=== PATIENT | female | born 1940 | race Caucasian/White ===

== ENCOUNTER 2017-07-12 13:54 | Emergency (ER) | payer OTHER ==
[~2017-07-12] VITALS: Ht 154.9 cm; Wt 62.0 kg
[~2017-07-12 13:54] MED LIST: ACET-1757 PO; ALLO300T PO; ATEN50TA41 PO; B12/1TAB PO; CHOL2000 PO; DIGO125T PO; DOCU100C33 PO; FENO43CA3 PO; GABA300C10 PO; LEVO500T8 PO; MAG355OR14 PO; MVI PO; POTA10PI PO; RIVA20TA PO; SIMV40TA3 PO; WARF2TAB7 PO; WARF4TAB PO; WARF4TAB7 PO; WARF6TAB7 PO; [UNRECOGNIZED DRUG - CODE] PO
[2017-07-12] MEDS ORDERED: SODIUM CHLORIDE 0.9% 1,000ML IVBOLUS ONE (14:30)
[2017-07-12] MEDS ORDERED: SODIUM CHLORIDE FLUSH 10ML SYR IVF ONE (14:30)
[2017-07-12 15:01] LABS: BASOPHILS # (AUTO) 0.03 x10^3/uL (0-0.1); BASOPHILS % (AUTO) 0 % (0-1); EOSINOPHILS # (AUTO) 0.14 x10^3/uL (0-0.4); EOSINOPHILS % (AUTO) 2 % (1-7); LYMPHOCYTES % (AUTO) 45 % (22-44); MD NO; MEAN CORPUSCULAR HEMOGLOBIN 32.2 pg (27.0-34.8); MEAN CORPUSCULAR HGB CONC 33.9 g/dL (32.4-35.8); MEAN CORPUSCULAR VOLUME 94.9 fL (80-100); MEAN PLATELET VOLUME 10.5 fL (7.4-10.4); MONOCYTES % (AUTO) 10 % (2-9); NEUTROPHILS # (AUTO) 2.73 x10^3/uL (1.8-6.8); NEUTROPHILS % (AUTO) 43 % (42-75); PLATELET COUNT 179 x10^3/uL (130-400); RED BLOOD COUNT 5.24 x10^6/uL (3.82-5.3); RED CELL DISTRIBUTION WIDTH 13.6 % (9.6-15.2)
[2017-07-12 15:11] LABS: ALBUMIN 3.5 g/dL (3.4-5.0); ANION GAP 5 mmol/L (5-15); CALCIUM 10.6 mg/dL (8.5-10.1); CHLORIDE 107 mmol/L (98-107); CREATININE 1.21 mg/dL (0.55-1.02)
[2017-07-12 15:15] LABS: TROPONIN I 0.018 ng/mL (0.000-0.045)
[2017-07-12 15:26] LABS: INTERNATIONAL NORMALIZED RATIO 4.13 (0.93-1.1); PROTHROMBIN TIME 41.4 Seconds (9.6-11.5)
[2017-07-12 15:47] LABS: MICROSCOPIC AUTO
[2017-07-12 15:50] LABS: CULTURE INDICATED? NO
[2017-07-12 16:07] VITALS: BP 166/92
== END 2017-07-12 17:23 | disposition home or self-care (01) ==
LOC: ED 16:41
DX: R09.02 Hypoxemia (principal); E78.5 Hyperlipidemia, unspecified; I10 Essential (primary) hypertension; I48.91 Unspecified atrial fibrillation; J44.9 Chronic obstructive pulmonary disease, unspecified; M10.9 Gout, unspecified; M19.90 Unspecified osteoarthritis, unspecified site; M81.0 Age-related osteoporosis without current pathological fracture; Z95.0 Presence of cardiac pacemaker
CPT/HCPCS: 36415; 70450; 71046; 80048; 81001; 82040; 84484; 85025; 85610; 85730; 93005; 96360; 99285; J7030

== ENCOUNTER 2018-12-27 09:42 | Outpatient (CLI) | payer MEDICARE | END 2018-12-27 23:59 | disposition home or self-care (01) | LOC: CFH 09:42 | PROVIDERS: ATTEND Family Medicine | DX: M48.56XA Collapsed vertebra, not elsewhere classified, lumbar region, initial encounter for fracture (principal); M47.817 Spondylosis without myelopathy or radiculopathy, lumbosacral region; M25.511 Pain in right shoulder; M43.16 Spondylolisthesis, lumbar region; Z95.828 Presence of other vascular implants and grafts | CPT/HCPCS: 72110 ==